=== PATIENT | female | born 1945 | race Caucasian/White ===

== ENCOUNTER → 2018-02-20 09:54 | Outpatient (CLI) | payer MEDICARE, OTHER, SELFPAY ==
--- NOTE | 2018-02-20 | DI.RAD.S_ITS ---
PROCEDURE: XR CHEST 2V INDICATIONS: Chest pain, unspecified TECHNIQUE: 2 views of the chest were acquired. COMPARISON: None. FINDINGS: Surgical changes and devices: None. Lungs and pleura: No pleural effusions or pneumothorax. Lungs are clear. Mediastinum: Mediastinal contours are normal. Heart size is normal. Bones and chest wall: No suspicious bony abnormalities. Soft tissues appear unremarkable. IMPRESSION: No acute disease. Dictated by: Zafar Ho M.D. on 02/20/2018 at 11:12 Approved by: Zafar Ho M.D. on 02/20/2018 at 11:23
== END ==
PROVIDERS: PCP Internal Medicine; Visit Provider Internal Medicine
DX: R07.9 Chest pain, unspecified (principal); M89.9 Disorder of bone, unspecified
CPT/HCPCS: 71046

== ENCOUNTER → 2018-03-08 10:00 | Outpatient (CLI) | payer MEDICARE, OTHER, SELFPAY | PROVIDERS: PCP Internal Medicine; Visit Provider Internal Medicine | DX: M85.852 Other specified disorders of bone density and structure, left thigh (principal); E07.9 Disorder of thyroid, unspecified | CPT/HCPCS: 77080 ==

== ENCOUNTER → 2018-03-12 08:08 | Outpatient (CLI) | payer MEDICARE, OTHER, SELFPAY ==
--- NOTE | 2018-03-12 09:16 | PM.TREADMILL ---
Cardiac Stress Test Report Referral & Results Date Patient Seen: 03/12/18 Time Patient Seen: 09:16 Requesting provider: Rashmi Cardenas Indication: Chest pain Rest ECG: Unremarkable Procedure Note: Today following both written and verbal informed consent the patient was exercised according to a standard Danilo protocol patient went for a total of 7 min 11 sec achieving a maximum heart rate of 146 maximum systolic blood pressure of 180. This is approximately 10.1 METS. Exercise was terminated at this point because of targets having been met. Patient could continue on the treadmill probably a fair amount longer. Patient was also given Cardiolite through a previously started Hep-Lock IV by the lead quality technician approximately 1 minute prior to the cessation of exercise. There were no ST-T segment changes identified Normal heart rate and blood pressure response to exercise Functional aerobic impairment rated at least-30% on the active scale noting the patient could have continued Single PVC in recovery identified Impression: No evidence of ischemia based on ECG criteria. Perfusion imaging will be reported separately. Amazing exercise capacity. Please note: Actual ECG tracings can be found in the PACS system.
--- NOTE | 2018-03-13 15:13 | DI.NM.S_ITS ---
DATE OF SERVICE: 03/12/2018 PROCEDURE: Exercise perfusion study. INDICATIONS: Chest pain with underlying hyperlipidemia. RADIOPHARMACEUTICAL: 25.5 mCi technetium-99 Myoview IV was injected in stress and 24.5 mCi technetium-99m Myoview IV was injected at rest. CARDIAC STRESS: Patient underwent exercise perfusion study under the supervision of an attending staff. She walked on Danilo protocol for 7 minutes 11 seconds and achieved 100% target heart rate with normal blood pressure response. Baseline rhythm was sinus. Stress EKG did not reveal any obvious inducible ischemic changes. There were no significant arrhythmias other than single PVCs. No significant symptoms were reported. Functional aerobic impairment -30%. RAW DATA: There appears to be adequate myocardial uptake. GATED STUDY: Stress LV ejection fraction 78% without any significant wall motion abnormalities. Resting end-diastolic volume 76 mL. No transient ischemic dilatation. TID ratio is 0.85, which is within normal limits. Lung/heart ratio was 0.4, which is within normal limits. MYOCARDIAL PERFUSION: Stress supine and resting supine and stress prone images revealed normal myocardial perfusion. CONCLUSION: This is a normal myocardial perfusion study. Functional aerobic impairment -30%. She walked on Danilo protocol for 7 minutes 11 seconds. LV function preserved. Overall, this is a low-risk myocardial perfusion scan. Lai Cano - LINUX SYSTEMS ADMINISTRATOR/fn/kv doc#: [id number]/job#: [id number] dd: 03/13/2018 12:52:00 dt: 03/13/2018 15:05:00 DICTATING /COPIES TO: Irlanda Reyes MD COPIES MNE: VONDA
== END ==
PROVIDERS: PCP Internal Medicine; Visit Provider Internal Medicine
DX: R07.9 Chest pain, unspecified (principal); E78.5 Hyperlipidemia, unspecified
CPT/HCPCS: 78452; 93016; 93017; 93018; A9502

== ENCOUNTER 2019-02-07 09:48 | Emergency (ER) | payer MEDICARE, OTHER, SELFPAY ==
[2019-02-07 09:50] VITALS: BP 160/98; PULSE 80; RESP 18; TEMP 36.4; O2SAT 99
[2019-02-07 10:00] VITALS: BP 144/78; PULSE 67; RESP 14; O2SAT 97
[2019-02-07 10:12] LABS: Add Manual Diff / Slide Review NO; Basophils Absolute Auto 0 /uL (0-100); Basophils Percent Auto 0.6 % (0-2); Eosinophils Absolute Auto 100 /uL (0-450); Eosinophils Percent Auto 1.2 % (2-4); Hematocrit 45.5 % (36-46); Hemoglobin 15.4 g/dL (12.0-16.0); Lymphocytes Absolute Auto 1300 /uL (1100-4500); Lymphocytes Percent Auto 27.9 % (25-40); Mean Corpuscular HGB Conc 33.8 % (30-36); Mean Corpuscular Hemoglobin 32.4 PG (26-34); Mean Corpuscular Volume 95.7 fL (80-100); Monocytes Absolute Auto 300 /uL (0-900); Monocytes Percent Auto 6.2 % (3-14); Neutrophils Absolute Auto 2900 /uL (1500-7000); Neutrophils Percent Auto 64.1 % (50-75); Platelet Count 209 X10^3/uL (150-400); Red Blood Cell Count 4.75 X10^6/uL (4.0-5.2); Red Cell Distribution Width 13.4 % (11.6-14.8); White Blood Cell Count 4.5 X10^3/uL (4.5-11.0)
[2019-02-07 10:16] LABS: INR 0.9 (0.9-1.3)
--- NOTE | 2019-02-07 10:18 | DI.CT.S_ITS ---
PROCEDURE: CT HEAD/BRAIN WO CON INDICATIONS: facial numbness, vertigo TECHNIQUE: Noncontrast 4.5 mm thick angled axial sections acquired from the foramen magnum to the vertex, with coronal and sagittal reformats. For radiation dose reduction, the following was used: automated exposure control, adjustment of mA and/or kV according to patient size. COMPARISON: None. FINDINGS: Image quality: Excellent. CSF spaces: Basal cisterns are patent. No extra-axial fluid collections. The ventricles are symmetric in size and shape. Brain: No intracranial bleeds or masses. There is cerebral volume loss for age, with resultant ventricular and sulcal prominence. There are periventricular and deep white matter chronic small vessel ischemic changes. There is intracranial internal carotid artery atherosclerosis. Skull and face: Calvarium and visualized facial bones appear intact, without suspicious lesions. Sinuses: Visualized sinuses and mastoids are clear. IMPRESSION: 1. No acute intracranial process. 2. Mild atrophy and chronic microvascular ischemic changes. Dictated by: Elizbaeth Nance M.D. on 02/07/2019 at 10:26 Approved by: Elizabeth Nance M.D. on 02/07/2019 at 10:27
[2019-02-07 10:19] LABS: PTT Partial Thromboplastin Tim 32 SECONDS (26.4-36.2)
[2019-02-07 10:22] LABS: Blood Urea Nitrogen 18 mg/dL (7-17); Calcium 9.5 mg/dL (8.4-10.2); Carbon Dioxide 26 mmol/L (22-32); Chloride 104 mmol/L (98-107); Estimated Glomerular Filt Rate > 60.0 mL/min (>60); Glucose 132 mg/dL (80-110); HEMOLYSIS < 15 (0-50); Potassium 3.8 mmol/L (3.4-5.1); Sodium 140 mmol/L (137-145)
[2019-02-07] MEDS: SODIUM CHLORIDE 0.9% 1,000 ML 150 ML IV (10:45)
[2019-02-07] MEDS: MECLIZINE HCL 12.5 MG TABLET 50 MG PO (10:45)
--- NOTE | 2019-02-07 10:58 | ED_ITS ---
HPI - Neuro Symptoms/Deficit General Chief Complaint: Neuro Symptoms/Deficit Stated Complaint: Dizzy,Left side of face is numb Time Seen by Provider: 02/07/19 10:05 Source: patient and family Mode of arrival: ambulatory Limitations: no limitations History of Present Illness HPI Narrative: This is a 73-year-old female comes emergency department complaint of vertigo like symptoms. Patient states she has had in the past but she has on the left side of her face which is new. Patient denies any tingling anywhere el se. She denies any weakness or numbness elsewhere. She denies any but has had a little nausea. She denies any, no vision changes. No chest pain or shortness of breath. No other GI or urinary symptoms other than described above. Patient takes levothyroxine. She denies any other major medical issues. Patient states she woke up this morning with symptoms. She went to bed without them it is w orse with movement. She was able to ambulate into the department. On Anticoagulants: No Related Data Home Medications Medication Instructions Recorded Confirmed CoQ-10 300 mg PO DAILY 02/07/19 02/07/19 cholecalciferol (vitamin D3) 5,000 unit PO DAILY 02/07/19 02/07/19 [Vitamin D3] levothyroxine 50 mcg PO DAILY 02/07/19 02/07/19 multivitamin 1 tab PO DAILY 02/07/19 02/07/19 Previous Rx's Medication Instructions Recorded meclizine 25 mg PO QID PRN #10 tab 02/07/19 Allergies Allergy/AdvReac Type Severity Reaction Status Date / Time No Known Drug Allergies Allergy Verified 02/07/19 10:24 [facility] Social History Smoking Status: Never smoker Social History Smoking Status: Never smoker Exam Narrative Exam Narrative: GEN: well nourished, well appearing female, alert and oriented x 3, patient appears to be in mild distress. HEENT: Atraumatic, pupils are equal round reactive to light, extraocular movements are intact, nares are clear, TMs are clear with no fluid, there is no conjunctival pallor. Throat is clear without any exudates, erythema, tonsillar enlargement or uvular deviation, no facial droop HEART: Regular rate and rhythm without murmur, clicks, rubs. No carotid bruits, pulses are equal in upper and lower extremities LUNGS:Lungs clear to auscultation, no wheezes, rales, crackles, chest moves symmetrically ABD:bowel sounds normal, soft, non-tender, no guarding, rebound, rigidity, no masses noted, no hepatosplenomegaly :No CVA tenderness MSCL: Non-tender, no muscle atrophy, muscles strength 5/5 upper and lower extremities, full range of motion, normal gait NEURO:CN 2-12 intact, sensation normal, reflexes 2/4 upper and lower extremities. finger nose finger test normal, heel rubio test normal. Initial Vital Signs Initial Vital Signs: Vital Signs Temperature 97.5 F L 02/07/19 09:50 Pulse Rate 80 02/07/19 09:50 Respiratory Rate 18 02/07/19 09:50 Blood Pressure 160/98 H 02/07/19 09:50 Pulse Oximetry 99 02/07/19 09:50 Scores NIH Stroke Scale Level of Conciousness: Alert, keenly responsive Ask month/age: Answers both questions correctly. Open/close eyes, close hand: Performs both tasks correctly Best gaze horizontal: Normal Visual jaimes: No visual loss Facial palsy: Normal symetrical movement Left arm drift: No drift for full 10 sec Right arm drift: No drift for full 10 sec Left leg drift: No drift for full 10 sec Right leg drift: No drift for full 10 sec Limb ataxia: Absent (patient unable to bend left knee 2nd to old knee xray.) Sensory on face/arms/legs: Mild to moderate sensory loss, can tell touch Best language: No aphasia, normal Dysarthria: Normal Extinction or inattention: No abnormality Total NIH Stroke scale score: 1 Course Orders Ordered: ED Orders 02/07/19 10:03 Basic Metabolic Panel Stat Complete Blood Count AUTO DIFF Stat Partial Thromboplastin Time Stat Prothrombin Time INR Stat 02/07/19 10:06 EKG-12 Lead Stat 02/07/19 10:18 CT head/brain wo con Stat Discontinued Medications Sodium Chloride (Normal Saline 0.9%) 1,000 mls @ 150 mls/hr IV CONT MINAL Last Infusion: 02/07/19 12:34 Dose: 0 mls/hr Documented by: Admin: 02/07/19 10:45 Dose: 150 mls/hr Documented by: HERMINIO Meclizine HCl (Antivert) 50 mg PO NOW ONE Stop: 02/07/19 10:13 Last Admin: 02/07/19 10:45 Dose: 50 mg Documented by: HERMINIO Vital Signs Vital signs: Vital Signs - 8 hr 02/07/19 11:00 02/07/19 11:35 02/07/19 11:37 Pulse Rate 63 64 64 Respiratory Rate 16 16 14 Blood Pressure [Right Arm] 142/73 H 152/79 H 152/79 H Pulse Oximetry 97 98 97 02/07/19 12:29 Pulse Rate 68 Respiratory Rate 18 Blood Pressure [Right Arm] 136/76 Pulse Oximetry 98 MDM - Neuro Symptoms/Deficit Lab Data Attestation: I reviewed the patient's lab results. Result diagrams: 02/07/19 10:03 02/07/19 10:03 Labs: Lab Results 02/07/19 02/07/19 02/07/19 Range/Units 10:03 10:03 10:03 WBC 4.5 (4.5-11.0) X10^3/uL RBC 4.75 (4.0-5.2) X10^6/uL Hgb 15.4 (12.0-16.0) g/dL Hct 45.5 (36-46) % MCV 95.7 (80-100) fL MCH 32.4 (26-34) PG MCHC 33.8 (30-36) % RDW 13.4 (11.6-14.8) % Plt Count 209 (150-400) X10^3/uL Neut % (Auto) 64.1 (50-75) % Lymph % (Auto) 27.9 (25-40) % [place] % (Auto) 6.2 (3-14) % Eos % (Auto) 1.2 L (2-4) % Baso % (Auto) 0.6 (0-2) % Neut # (Auto) 2900 (7988-7895) /uL Lymph # (Auto) 1300 (1079-7627) /uL [place] # (Auto) 300 (0-900) /uL Eos # (Auto) 100 (0-450) /uL Baso # (Auto) 0 (0-100) /uL PT 10.0 L (10.1-12.7) SECONDS INR 0.9 (0.9-1.3) APTT 32 (26.4-36.2) SECONDS Sodium 140 (137-145) mmol/L Potassium 3.8 (3.4-5.1) mmol/L Chloride 104 (98-107) mmol/L Carbon Dioxide 26 (22-32) mmol/L BUN 18 H (7-17) mg/dL Creatinine 0.60 (0.52-1.04) mg/dL Estimated GFR > 60.0 (>60) mL/min BUN/Creatinine Ratio 30.0 H (6-22) Glucose 132 H (80-110) mg/dL Calcium 9.5 (8.4-10.2) mg/dL Imaging Data CT scan - head: Radiologist's impression: Lia Cano Jazmín 73 F 1945 [place] [address] CT Scan Report Signed Patient: Lia Cano DMR#: [id number] : 4Acct:[id number] Age/Sex: 73 / FDate of Service: 02/07/19 Loc: ED Accession Number: [id number] Procedure: CT head/brain wo con Ordering Provider: Deidre Wallace D.O. PROCEDURE: CT HEAD/BRAIN WO CON INDICATIONS: facial numbness, vertigo TECHNIQUE: Noncontrast 4.5 mm thick angled axial sections acquired from the foramen magnum to the vertex, with coronal and sagittal reformats. For radiation dose reduction, the following was used: automated exposure control, adjustment of mA and/or kV according to patient size. COMPARISON: None. FINDINGS: Image quality: Excellent. CSF spaces: Basal cisterns are patent. No extra-axial fluid collections. The ventricles are symmetric in size and shape. Brain: No intracranial bleeds or masses. There is cerebral volume loss for age, with resultant ventricular and sulcal prominence. There are periventricular and deep white matter chronic small vessel ischemic changes. There is intracranial internal carotid artery atherosclerosis. Skull and face: Calvarium and visualized facial bones appear intact, without suspicious lesions. Sinuses: Visualized sinuses and mastoids are clear. IMPRESSION: 1. No acute intracranial process. 2. Mild atrophy and chronic microvascular ischemic changes. Dictated by: Elizabeth Nance M.D. on 02/07/2019 at 10:26 Approved by: Elizabeth Nance M.D. on 02/07/2019 at 10:27 ECG Data Attestation: I personally reviewed and interpreted this ECG as follows: Prior ECG tracings: available for review Interpretation: Sinus rhythm with a rate of 67 P are 174 QRS of 94 and QTC of 441. No ST elevation appreciated. Facial depression 2 3 AVF. Patient has incomplete right bundle branch. Prior EKG from 02/16/16 and 2014 available, appears similar. MDM Narrative Medical decision making narrative: Patient is requesting to go home, she states the tingling has gone away. Her vertigo has improved with meclizine. Patient has had vertigo in the past but not the tingling sensation. We discussed at length that I cannot rule out a TIA or stroke although her symptoms have otherwise resolved patient wishes to return home at time she does understand that she could be having a TIA or stroke that we are missing asked to continue an aspirin daily until she follows up with her primary and that she does need workup. We did discuss the keep her for observation and I would be the more appropriate conservative pathway. Patient and are both in the room they are both comfortable with the plan and have both expressed understanding. Discharge Plan Departure Patient Disposition: Home Clinical Impression: Vertigo Discharge Date/Time: 02/07/19 12:40 Instructions: DI for Transient Ischemic Attack Activity Restrictions/Additional Instructions: Follow-up with your primary care physician on Sunday, call this afternoon to set up an appointment. You should have further workup including MRI, echo, Dopplers of your neck and evaluation for TIA or stroke. Take an aspirin daily until you follow up with your physician. You may continue your other home medications. Take meclizine 1-2 tablets every 6-8 hours as needed for vertigo symptoms. Return to the emergency department for new or worsening symptoms, sudden severe headaches, new facial droop, difficulty with speech, new numbness or tingling, new weakness difficulty with movement or other new or concerning symptoms. Prescriptions: New meclizine 25 mg tablet,chewable 25 mg PO QID PRN (Reason: dizziness) Qty: 10 RF: 0 No Action multivitamin Tablet 1 tab PO DAILY RF: 0 levothyroxine 50 mcg Tablet 50 mcg PO DAILY RF: 0 cholecalciferol (vitamin D3) [Vitamin D3] 5,000 unit Tablet 5,000 unit PO DAILY RF: 0 CoQ-10 300 MG 300 mg PO DAILY RF: 0 Referrals: Rashmi Cardenas MD [Primary Care Provider] -
[2019-02-07 11:00] VITALS: BP 142/73; PULSE 63; RESP 16; O2SAT 97
[2019-02-07 11:35] VITALS: BP 152/79; PULSE 64; RESP 16; O2SAT 98
[2019-02-07 11:37] VITALS: BP 152/79; PULSE 64; RESP 14; O2SAT 97
[2019-02-07 12:29] VITALS: BP 136/76; PULSE 68; RESP 18; O2SAT 98
== END 2019-02-07 12:40 | disposition home or self-care (01) ==
PROVIDERS: Emergency Provider Emergency Medicine; PCP Internal Medicine
DX: R42 Dizziness and giddiness (principal); R20.0 Anesthesia of skin
CPT/HCPCS: 36591; 70450; 80048; 85025; 85610; 85730; 93005; 93010; 96360; 96361; 99283; 99285

== ENCOUNTER → 2019-02-28 07:41 | Outpatient (CLI) | payer MEDICARE, OTHER, SELFPAY ==
--- NOTE | 2019-02-28 | DI.MRI.S_ITS ---
PROCEDURE: MR STROKE Pre- and post-contrast brain MRI, non-contrast brain MR angiogram, pre- and postcontrast neck MR angiogram INDICATIONS: TRANSIENT CEREBRAL ISCHEMIC ATTACH,UNSPECIFIED TECHNIQUE: Brain: Noncontrast axial T1 spin echo, axial T2 fast spin echo, sagittal and axial FLAIR, coronal T2 fast spin echo, axial gradient echo, axial diffusion and ADC through the brain. After the administration of contrast, axial 3D VIBE of the cranial vasculature and brain. Brain MRA: Non-contrast 3-D time of flight MR angiogram, with multiple gzatgvx-gpuarovpa-whvhytfhcq (MIP) reformats performed. Neck MRA: Axial and sagittal TruFISP through the neck. Coronal dynamic MR angiogram during administration of contrast in the arterial and venous phases, with 3-dimenstional tmcysdl-nfjypkmxy-rpwghkqfgq (MIP) reformats constructed from subtraction images. COMPARISON: None. FINDINGS: Image quality: Excellent. BRAIN: CSF spaces: Ventricles are normal in size and shape. Basal cisterns are patent. No extra-axial fluid collections. Brain: No intracranial bleeds or mass effects. Fox-white matter interface is normal. Diffusion weighted images show no acute ischemic insults. No areas of encephalomalacia. There is mild, diffuse cerebral volume loss. There are mild periventricular and subcortical white matter chronic microvascular ischemic changes. Brainstem appears normal. Normal intravascular flow voids are present. No abnormal intracranial enhancement. Skull and face: Calvarial marrow signal is normal. Orbits appear normal. Sinuses: Sinuses and mastoids are clear. BRAIN MR ANGIOGRAM: Anterior circulation: Intracranial internal carotid arteries are normal in size and enhancement. The flow within the paired anterior cerebral arteries is normal and symmetric. The flow within the middle cerebral arteries is normal and symmetric. The anterior communicating artery is seen. No stenoses, occlusions, or aneurysms. Posterior circulation: The visualized portions of the vertebral arteries demonstrate normal caliber, and join to form a normal appearing basilar artery. The flow within the posterior cerebral arteries is normal and symmetric. No stenoses, occlusions, or aneurysms. NECK MR ANGIOGRAM: Carotids: Great vessels demonstrate a conventional anatomy as they arise from the aortic arch. The origins of the common carotid arteries appear patent. The calibers and courses of both common carotid arteries are normal. The bifurcation regions appear normal bilaterally. The internal carotid arteries demonstrate normal course and caliber. Posterior circulation: The origins of the vertebral arteries appear patent. More superior portions of both vertebral arteries demonstrate normal course and caliber, and join to form a normal appearing basilar artery. Miscellaneous: Subclavian arteries appear patent. Pre-contrast images through the neck show no soft tissue abnormalities. IMPRESSION: BRAIN MRI: 1. No acute intracranial disease process. 2. No areas of acute or chronic infarction. 3. No abnormal intracranial mass or suspicious postcontrast enhancement. 4. Mild, diffuse cerebral volume loss. 5. Mild periventricular and subcortical white matter chronic microvascular ischemic changes. BRAIN MR ANGIOGRAM: 1. Negative examination. 2. No large vessel occlusion, vascular stenosis, vascular dissection or aneurysm. NECK MR ANGIOGRAM: 1. Negative examination. 2. No large vessel occlusion, vascular stenosis, vascular dissection or aneurysm. Dictated by: Angeles Meehan MD, PhD on 02/28/2019 at 12:13 Approved by: Angeles Meehan MD, PhD on 02/28/2019 at 12:18
--- NOTE | 2019-02-28 | DI.ECHO.S_ITS ---
[place] [facility]---------+ [facility] +---------+ : : [address] : : : : [id number] : : : : Phone: [phone] Echocardiogram Report + + :Name: SIERRA BURGOS Study Date: 02/28/2019 Height: 61 in : :[facility] Weight: 144 lb : : Gender: Female BSA: 1.6 m2 : :: 1945 Age: 73 yrs BP: 160/90 mmHg: :Reason For Study: TIA : :Ordering Physician: Victorina Reis : :Fercho Performed By: Dayana Page : :Referring: MACARENA BROUSSARD : + + Interpretation Summary The left ventricle is normal in size, wall thickness, and systolic function without any focal wall motion abnormalities. The ejection fraction is estimated to be 60-65%. Diastolic parameters suggest a relaxation abnormality of the left ventricle, consistent with probable normal filling pressures. The right ventricle is normal in size and function. The right ventricular systolic pressure is estimated to be at least 20 mmHg based on an estimated right atrial pressure of 3 mm Hg. The left atrium is mildly dilated. Right atrial size is normal. There is mild mitral regurgitation. There is no significant valvular heart disease. The aortic root is normal size. No obvious source for cardioembolic TIA. Procedure: A two-dimensional transthoracic echocardiogram with color flow and Doppler was performed. The study quality was technically adequate. There is no prior echocardiogram noted for this patient. The patient was in normal sinus rhythm during the exam. Left Ventricle: The left ventricle is normal in size, wall thickness, and systolic function without any focal wall motion abnormalities. The ejection fraction is estimated to be 60-65%. Diastolic parameters suggest a relaxation abnormality of the left ventricle, consistent with probable normal filling pressures. Right Ventricle: The right ventricle is normal in size and function. Atria: The left atrium is mildly dilated. Right atrial size is normal. There is no Doppler evidence for an interatrial shunt. Mitral Valve: The mitral valve leaflets are mildly calcified. There is mild mitral regurgitation. Aortic Valve: The aortic valve is trileaflet. The aortic valve opens well. The aortic valve is slightly calcified. No aortic regurgitation is present. Tricuspid Valve: The tricuspid valve is normal in structure and function. There is a trace or physiologic amount of tricuspid regurgitation. The right ventricular systolic pressure is estimated to be at least 20 mmHg based on an estimated right atrial pressure of 3 mm Hg. Pulmonic Valve: The pulmonic valve is not well visualized. There is trace pulmonic regurgitation. There is no significant valvular heart disease. Great Vessels: The aortic root is normal size. The ascending aorta is normal in size. The pulmonary artery is not well visualized, but is probably normal size. The IVC is of normal diameter and collapses greater than 50% with a sniff. This suggests a low right atrial pressure of 3 mm Hg. Pericardium/ Pleura There is no pericardial effusion. There is no pleural effusion. MMode/2D Measurements & Calculations LVIDd: 4.5 cm LVOT diam: 2.1 cm LVIDs: 3.3 cm Ao root diam: 3.1 cm FS: 27.7 % asc Aorta Diam: 2.9 cm EPSS: 0.14 cm Ao Arch Diam (Prox Trans): 2.4 cm IVSd: 0.75 cm LVPWd: 0.65 cm LV hong. diameter/BSA (cm/m^2): 2.7 LV sys. diameter/BSA (cm/m^2): 2.0 LA A2 area: 19.2 cm2 RA long axis: 4.8 cm LA A4 area: 22.2 cm2 RA area: 15.6 cm2 LA length (vol): 5.4 cm RA vol: 43.2 ml LA vol: 67.0 ml RA : 26.3 ml/m2 LA vol index: 40.8 ml/m2 IVC diam: 1.7 cm RVD1 (basal): 3.8 cm RVD2 (mid): 2.9 cm TAPSE: 2.7 cm Doppler Measurements & Calculations Ao V2 max: 170.6 cm/sec LVOT Max Lamont: 95.8 cm/sec Ao V2 mean: 118.6 cm/sec LV V1 max P.7 mmHg Ao max P.6 mmHg LV V1 VTI: 22.1 cm Ao mean P.2 mmHg GOLDEN(I,D): 2.1 cm2 Ao V2 VTI: 36.2 cm GOLDEN(V,D): 2.0 cm2 sev ratio: 0.61 GOLDEN indexed to BSA (cm^2/m^2): 1.3 MV E max lamont: 90.2 cm/sec TR max lamont: 207.3 cm/sec MV A max lamont: 103.8 cm/sec TR max P.2 mmHg MV E/A: 0.87 PA V2 max: 71.6 cm/sec Med Peak E' Lamont: 6.8 cm/sec PA V2 mean: 53.4 cm/sec E/E' med: 13.2 PA mean P.2 mmHg Lat Peak E' Lamont: 9.7 cm/sec PA Accel Time: 0.13 sec E/E' lat: 9.3 E/e' average: 11.3 MV dec time: 0.21 sec MV P1/2t: 59.1 msec MV P1/2t max lamont: 90.8 cm/sec SV(LVOT): 77.7 ml MVA(P1/2t): 3.7 cm2 Reading Physician:12:46 PM
--- NOTE | 2019-02-28 | DI.US.S_ITS ---
PROCEDURE: US CAROTID DOPPLER BI INDICATIONS: TRANSIENT CEREBRAL ISCHEMIC ATTACH,UNSPECIFIED TECHNIQUE: Color and pulse Doppler interrogation was performed of both carotid systems, with image documentation and velocity measurements. COMPARISON: [facility], CT, CT HEAD/BRAIN WO CON, 02/07/2019, 10:07. FINDINGS: Stenosis calculations are based on SRU (Society of Radiologists in Ultrasound) criteria. The flow velocities and the arterial waveforms are normal within both carotid arterial systems. Atherosclerotic plaque is seen on both sides. The estimated degree of internal carotid artery stenosis is less than 50%. The internal carotid arteries are both noted to be tortuous. Antegrade flow is confirmed within both vertebral arteries. IMPRESSION: No hemodynamically significant stenosis is seen. Atherosclerotic plaque is noted bilaterally. Dictated by: Jesus Manuel Lilly M.D. on 02/28/2019 at 8:59 Approved by: Jesus Manuel Lilly M.D. on 02/28/2019 at 9:00
== END ==
PROVIDERS: Family Provider Internal Medicine; PCP Internal Medicine; Visit Provider Physician Assistant
DX: G45.9 Transient cerebral ischemic attack, unspecified (principal); I34.0 Nonrheumatic mitral (valve) insufficiency; I10 Essential (primary) hypertension; E78.2 Mixed hyperlipidemia; R42 Dizziness and giddiness; R20.0 Anesthesia of skin
CPT/HCPCS: 70548; 70553; 93306; 93880; A9579

== ENCOUNTER → 2019-05-26 10:04 | Outpatient (CLI) | payer MEDICARE, OTHER, SELFPAY ==
[2019-05-26 11:43] LABS: Alanine Aminotransferase 26 IU/L (<35); Aspartate Aminotransferase 35 IU/L (14-36); BUN Creatinine Ratio 18.8 (6-22); Blood Urea Nitrogen 15 mg/dL (7-17); Calcium 9.8 mg/dL (8.4-10.2); Carbon Dioxide 31 mmol/L (22-32); Chloride 103 mmol/L (98-107); Cholesterol 232 mg/dL (140-199); Estimated Glomerular Filt Rate > 60.0 mL/min (>60); Glucose 98 mg/dL (80-110); HDL Cholesterol 95 mg/dL (40-60); HEMOLYSIS < 15 (0-50); LDL Cholesterol Calculated 113 mg/dL (<100); Potassium 5.1 mmol/L (3.4-5.1); Sodium 141 mmol/L (137-145); Triglycerides 120 mg/dL (35-150)
[2019-05-26 13:47] LABS: TSH w/ Reflex to FT4 4.56 uIU/mL (0.47-4.68)
== END ==
PROVIDERS: PCP Internal Medicine; Visit Provider Internal Medicine
DX: M85.80 Other specified disorders of bone density and structure, unspecified site (principal); E78.5 Hyperlipidemia, unspecified; E03.9 Hypothyroidism, unspecified
CPT/HCPCS: 36415; 80048; 80061; 84443; 84450; 84460

== ENCOUNTER → 2019-07-03 14:20 | Outpatient (CLI) | payer OTHER, SELFPAY ==
--- NOTE | 2019-07-03 | DI.NM.S_ITS ---
PROCEDURE: [place] KIM PERF SPECT REST & STR Rest and exercise myocardial perfusion SPECT with gated imaging and ejection fraction RADIOPHARMACEUTICAL: 24.1 mCi Tc-99m sestamibi IV at rest and 26.4 mCi Tc-99m sestamibi IV at peak exercise. A [id number] was performed. INDICATIONS: Chest pain, unspecified TECHNIQUE: Radiopharmaceutical was injected at peak stress test, and also at rest. SPECT images were obtained. SPECT myocardial perfusion images were displayed in short axis, horizontal long axis, and vertical long axis views. Gated images were reviewed using [employer] software. COMPARISON: [facility], [place], [place] KIM PERF SPECT REST & STR, 03/12/2018, 8:51. CARDIAC STRESS: A standard Danilo treadmill exercise tolerance test was performed by the patient under the supervision of an attending staff. The patient exercised for 7 minutes and 21 seconds; functional aerobic impairment (STORMY) is -19 %. Hemodynamic data: There is normal blood pressure and heart rate response to exercise stress. Patient achieved 106% of maximum predicted heart rate at peak exercise. Symptoms: Patient denied chest pain during exercise. Retrosternal chest burning at rest and exercise with no change with activity. EKG: Baseline ECG is normal. No diagnostic EKG changes of ischemia; no ectopy. FINDINGS: Raw data: There is good myocardial labeling by radiotracer. No significant motion artifacts. Rrdl-zz-ngqbk ratio is 0.42 (normal is less than 0.38 for sestamibi tracer, and less than 0.50 for thallium tracer). Left ventricle function: Gated images demonstrate normal left ventricle wall thickening. No segmental wall motion abnormality. No transient ischemic dilation; TID is 0.88 (normal less than 1.3). The left ventricle resting end-diastolic volume is 84 mL. Left ventricle stress ejection fraction is >75%; normal values are above 45%. Myocardial perfusion: There is normal distribution of activity in the left and right ventricular myocardium. No fixed or reversible perfusion defects. IMPRESSION: -Normal myocardial perfusion study with no evidence of ischemia or scar. -No changes compared to the prior study. -Great exercise capacity. -Overall this is a low risk study. Dictated by: Colton Jacob M.D. on 07/04/2019 at 17:24 Approved by: Colton Jacob M.D. on 07/04/2019 at 17:30
== END ==
PROVIDERS: PCP Internal Medicine; Referring Provider Internal Medicine; Visit Provider Internal Medicine
DX: R07.9 Chest pain, unspecified (principal)
CPT/HCPCS: 78452; 93017; A9502

== ENCOUNTER 2019-07-09 08:57 | Day surgery (SDC) | payer OTHER, SELFPAY ==
--- NOTE | 2019-07-09 | PATH_ITS ---
[facility] Accession Number: [id number] . 01 Material submitted: . PART A: colon - DESCENDING COLON POLYP PART B: rectum - RECTAL PROLAPSE BIOPSY . 01 Clinical history: . B: RULE OUT DYSPLASIA . 02 Diagnosis: A. Descending Colon, Polyp, Biopsy: Inflammatory polyp. Negative for dysplasia and malignancy. . B. Rectum, Prolapse, Biopsy: Colonic mucosa with features consistent with mucosal prolapse. Negative for dysplasia and malignancy. [facility] 07/10/2019 1213 Local . 02 Electronically signed: . Harini Beltran MD, Pathologist NPI- [id number] . 01 Gross description: . Part A: DESCENDING COLON POLYP: Received in formalin is 1 fragment(s) of guzman, soft tissue measuring 0.2 x 0.2 x 0.1 cm submitted entirely in 1 cassette(s) Part B: RECTAL PROLAPSE BIOPSY: Received in formalin are 2 fragment(s) of guzman, soft tissue measuring 0.1 x 0.1 x 0.1 cm to 0.3 x 0.2 x 0.2 cm submitted entirely in 1 cassette(s) /[facility] [place] 07/09/2019 2131 Local . 02 Pathologist provided ICD-10: K62.3 . 02 CPT . 365558, [id number] Performed at: 01 [facility] [address], [place], [place] [id number] MD Ahmet Michelle MD Phone: [phone] Performed at: 02 [facility] [address] [place], [place] [id number] MD Harini Beltran MD Phone: [phone]
--- NOTE | 2019-07-09 08:07 | PM.HP.1 ---
History of Present Illness History of Present Illness Date Patient Seen: 07/09/19 Chief complaint: [id number] SCREENING COLONOSCOPY Narrative: Patient is a 73 year old female - presented for screening colonoscopy. No prior colonoscopy. Patient History Family & Social History Tobacco & Substance use: Smoking Status Never smoker alcohol intake frequency 0-2 drinks per day Substance Use Type does not use Meds Home Medications and Allergies Home Medications Medication Instructions Recorded Confirmed Type CoQ-10 300 mg PO DAILY 02/07/19 07/09/19 History cholecalciferol (vitamin D3) 5,000 unit PO DAILY 02/07/19 07/09/19 History [Vitamin D3] levothyroxine 50 mcg PO DAILY 02/07/19 07/09/19 History multivitamin 1 tab PO DAILY 02/07/19 07/09/19 History Allergies Allergy/AdvReac Type Severity Reaction Status Date / Time No Known Drug Allergies Allergy Verified 07/09/19 09:14 Review of Systems Review of Systems ROS: Yes All systems reviewed with the patient and are negative except as otherwise documented Exam Const General: cooperative, healthy appearing, comfortable, well developed, well groomed and No acute distress HENMT Head: normocephalic and atraumatic Nose: external nose normal Resp Effort & Inspection: normal respiratory effort and able to speak in complete sentences Auscultation: clear to auscultation bilaterally Cardio Rate: regular rate Rhythm: regular rhythm Heart Sounds: S1 normal and S2 normal GI Palpation: soft, No guarding and No rigid Auscultation: normal bowel sounds Extrem Right lower extremity: no edema Left lower extremity: no edema Assessment & Plan Assessment & Plan narrative: 1. Screening Colonoscopy - Colonoscopy today, further recommendations to follow.
[2019-07-09] MEDS: SODIUM CHLORIDE 0.9% 1,000 ML 70 ML IV (09:16)
[2019-07-09 09:18] VITALS: BP 154/90; PULSE 89; RESP 15; TEMP 36.6; O2SAT 98; BMI 26.4
[2019-07-09 10:23] VITALS: BP 123/71; PULSE 76; RESP 20; TEMP 36.2; O2SAT 98
[2019-07-09] MEDS: MIDAZOLAM 5 MG/5 ML VIAL IV (10:24)
[2019-07-09] MEDS: fentaNYL 250 MCG/5 ML INJ IV (10:25)
--- NOTE | 2019-07-09 10:26 | PM.OP.ENDO ---
Operative Date/Time/Diagnoses Date of procedure: 07/09/19 Time of procedure: 09:59 Procedure Notes Procedure in detail: Surgeon: Amirah Lazo DO Procedure: Colonoscopy with polypectomy and biopsy Preoperative diagnosis: -screening colonoscopy, average risk Postoperative diagnosis: 1. Descending colon polyp 5 mm, polypectomy 2. Diverticulosis, sigmoid colon 3. Rectal prolapse -biopsy to rule out dysplasia Medications: Conscious sedation using 4 mg IV of Midazolam and 100 mcg IV of Fentanyl Preanesthesia Assessment An H and P was performed/updated and the Px?s ASA class is 2. The procedure was discussed in detail with the patient. The potential risks and complications including infection, bleeding, missed lesions, perforation, need for surgery in case of perforation, prolonged hospital stay, and were explained. A brief question and answer period was allotted and once all questions were answered, informed consent was obtained. The patient was brought back to the procedure room and placed on standard monitoring. The patient?s vital signs were monitored continuously throughout the entire procedure. Prior to starting, a timeout was performed to confirm the patient?s identity, allergies, medications, and procedure. Procedure in detail The patient was placed in left lateral decubitus position and once adequate sedation was obtained a MARY was performed. The digital rectal examination revealed evidence of rectal prolapse, this was reducible. Due to discoloration of this tissue was biopsied to rule out dysplasia however I do suspect this is granulation tissue from chronic intermittent prolapse. The tip of the colonoscope was placed in the anal canal and advanced without difficulty all the way to the cecum which was identified by the appendiceal orifice and the ileocecal valve. Careful examination of all kingsley of the colon was performed with irrigation of any residual stool. 5 mm polyp noted in the descending colon removed with cold snare. Bleeding was minimal. Scattered sigmoid diverticulosis. The patient tolerated the procedure well and will be brought back to the recovery area to be discharged once criteria are met. The prep was judged to be good/excellent and adequate to identify polyps less than 5 mm. The withdrawal time was 11min. The total physician intraservice time was 19min. Complications There were no complications and estimated blood loss was minimal. Recommendations: Resume previous diet Continue outPx medications Follow up pathology results Repeat colonoscopy based on pathology results An emergency contact number was given to the patient for any complications related to the procedure
[2019-07-09 10:28] VITALS: BP 103/68; PULSE 80; RESP 18; O2SAT 99
== END 2019-07-09 10:51 | disposition home or self-care (01) ==
PROVIDERS: PCP Internal Medicine; Referring Provider Internal Medicine; Visit Provider Student in an Organized Health Care Education/Training Program
PROC: 0DJD8ZZ Inspection of Lower Intestinal Tract, Via Natural or Artificial Opening Endoscopic (ICD-10-PCS; CPT 45378; principal; 2019-07-09 10:30)
DX: Z12.11 Encounter for screening for malignant neoplasm of colon (principal); K57.30 Diverticulosis of large intestine without perforation or abscess without bleeding; K62.3 Rectal prolapse; K51.40 Inflammatory polyps of colon without complications
CPT/HCPCS: 45385; J2250; J3010

== ENCOUNTER 2020-11-29 03:59 | Emergency (ER) | payer OTHER, SELFPAY ==
[2020-11-29 04:19] VITALS: BP 166/79; PULSE 71; RESP 15; TEMP 36.2; O2SAT 96; BMI 27.3
[2020-11-29 04:52] LABS: Add Manual Diff / Slide Review NO; Basophils Absolute Auto 0 /uL (0-100); Basophils Percent Auto 0.3 % (0-2); Eosinophils Absolute Auto 0 /uL (0-450); Eosinophils Percent Auto 0.4 % (2-4); Hematocrit 42.2 % (36-46); Hemoglobin 14.1 g/dL (12.0-16.0); Lymphocytes Absolute Auto 1100 /uL (1100-4500); Lymphocytes Percent Auto 11.1 % (25-40); Mean Corpuscular HGB Conc 33.4 % (30-36); Mean Corpuscular Hemoglobin 31.7 PG (26-34); Mean Corpuscular Volume 94.9 fL (80-100); Monocytes Absolute Auto 500 /uL (0-900); Monocytes Percent Auto 5.3 % (3-14); Neutrophils Absolute Auto 8400 /uL (1500-7000); Neutrophils Percent Auto 82.9 % (50-75); Platelet Count 231 X10^3/uL (150-400); Red Blood Cell Count 4.45 X10^6/uL (4.0-5.2); Red Cell Distribution Width 13.8 % (11.6-14.8); White Blood Cell Count 10.2 X10^3/uL (4.5-11.0)
[2020-11-29 04:57] LABS: Alanine Aminotransferase 26 IU/L (<35); Albumin 4.5 g/dL (3.5-5.0); Albumin Globulin Ratio 1.5 (1.0-2.8); Alkaline Phosphatase 82 U/L (38-126); Aspartate Aminotransferase 45 IU/L (14-36); BUN Creatinine Ratio 28.9 (6-22); Bilirubin Total 0.5 mg/dL (0.2-1.3); Blood Urea Nitrogen 24 mg/dL (7-17); Calcium 9.3 mg/dL (8.4-10.2); Carbon Dioxide 25 mmol/L (22-32); Chloride 104 mmol/L (98-107); Estimated Glomerular Filt Rate > 60.0 mL/min (>60); Glucose 165 mg/dL (80-110); HEMOLYSIS < 15 (0-50); Lipase 365 U/L (23-300); Potassium 3.9 mmol/L (3.4-5.1); Sodium 138 mmol/L (137-145); Total Protein 7.5 g/dL (6.3-8.2)
[2020-11-29] MEDS: SODIUM CHLORIDE 0.9% 1,000 ML 1000 ML IV (05:11)
--- NOTE | 2020-11-29 05:11 | DI.CT.S_ITS ---
PROCEDURE: CT ABDOMEN PELVIS WO CON INDICATIONS: severe abdominal pain TECHNIQUE: Axial sections were acquired from the lung bases to the pubic symphysis. Coronal and sagittal reformats were performed. For radiation dose reduction, the following was used: automated exposure control, adjustment of mA and/or kV according to patient size. COMPARISON:None. FINDINGS: Image quality: Excellent. Lung bases: Unremarkable. Heart: No significant findings. URINARY: Right Kidney: Hydronephrosis, moderate in severity, with perinephric edema. Right Ureter: Hydroureter, to the mid pelvis level where a impacted 5 x 6 mm stone can be seen within the ureteral lumen, with hydroureter virtually terminating at that site. The internal stone density is 1031 Hounsfield units. Left Kidney: No stones or hydronephrosis. Left Ureter: No hydroureter. Bladder: Normal wall thickness. No stones. ABDOMEN: Liver: Unremarkable. Gallbladder: Unremarkable. Biliary ducts: Unremarkable. Pancreas: Unremarkable. Spleen: Unremarkable. Adrenal Glands: Unremarkable. Stomach and Bowel: Stomach, small bowel loops, and colon are unremarkable. Peritoneum: No abnormal intraperitoneal fluid. No free air. Ventral Wall: No hernia. Abdominal Nodes: No enlarged retroperitoneal or mesenteric lymph nodes. Vessels: Aorta and inferior vena cava are normal in size. PELVIS: Pelvic Organs: Unremarkable. Normal appendix found. Pelvic Nodes: Unremarkable. Miscellaneous: No inguinal hernias are seen. Bones: Unremarkable. IMPRESSION: Impacted 6 mm calculus at the distal 3rd of the ureter, above the bladder level, on the right. This produces moderate hydronephrosis and hydroureter with perinephric edema on the right. Normal appendix found. Note: These findings are concordant with the preliminary interpretation. Dictated by: Michele Monae M.D. on 11/29/2020 at 7:28 Approved by: Michele Monae M.D. on 11/29/2020 at 7:36
--- NOTE | 2020-11-29 05:11 | ED_ITS ---
HPI - Abdominal Pain General Chief Complaint: Abdominal Pain Stated Complaint: Tremendous pain in right side and back Time Seen by Provider: 11/29/20 04:12 Source: patient Mode of arrival: Ambulatory History of Present Illness HPI narrative: 75-year-old female nonsmoker with history of hypothyroid presents with a chief complaint of sudden onset right lower quadrant pain that started at about 11:00 p.m. tonight. She states it is worse when she moves and improves with rest. She admits to radiation up around her side to her right flank. She is nauseated but denies any vomiting. She denies any fever, shaking chills. She has no chest pain or shortness of breath. She is not dizzy nor weak or lightheaded. Related Data Home Medications Medication Instructions Recorded Confirmed CoQ-10 300 mg PO DAILY 02/07/19 07/09/19 cholecalciferol (vitamin D3) 125 5,000 unit PO DAILY 02/07/19 07/09/19 mcg (5,000 unit) tablet (Vitamin D3) levothyroxine 50 mcg tablet 50 mcg PO DAILY 02/07/19 07/09/19 multivitamin 1 tab PO DAILY 02/07/19 07/09/19 Previous Rx's Medication Instructions Recorded hydrocodone 5 mg-acetaminophen 325 1 tab PO Q4-6H PRN #10 tab 11/29/20 mg tablet ketorolac 10 mg tablet 10 mg PO Q6H PRN #14 tab 11/29/20 ondansetron 4 mg disintegrating 4 mg PO TID-QID PRN #10 tab 11/29/20 tablet tamsulosin 0.4 mg capsule (Flomax) 0.4 mg PO DAILY #30 cap 11/29/20 Allergies Allergy/AdvReac Type Severity Reaction Status Date / Time No Known Drug Allergies Allergy Verified 07/09/19 09:14 Review of Systems Review of Systems Narrative: GENERAL: Denies chills, fatigue, malaise, fever, sweats. HEENT: Denies sinus pain, ear pain, sore throat, difficulty swallowing, dizzine ss. RESPIRATORY: Denies dyspnea, cough, wheezing, hemoptysis, sputum. CARDIOVASCULAR: Denies chest pain, palpitations, orthopnea, edema, GASTROINTESTINAL: See HPI : Denies dysuria, frequency, incontinence, hematuria, urinary retention. MUSCULOSKELETAL: denies weakness, joint pain, or bony pain SKIN: Denies rash, skin lesions, or other NEUROLOGIC: Denies weakness, headache, numbness, change in speech, confusion, seizures, incoordination. PSYCHIATRIC: No concerning psychosocial issues. 12 point review of systems is negative except for those stated above Patient History Social History household members: spouse Smoking Status: Never smoker Smoking Status: Never smoker alcohol intake frequency: 0-2 drinks per day Substance Use Type: does not use Exam Narrative Exam Narrative: GENERAL: [75] year old patient appears stated age. Well- developed patient, in mild distress. Rubbing her lower abdomen HEAD: Atraumatic. Normocephalic. EYES: Pupils equal round and reactive. Extraocular motions intact. No scleral icterus. No injection or drainage. ENT: Nose without bleeding, purulent drainage. Throat without erythema, tonsillar hypertrophy or exudate. Airway patent. NECK: Trachea midline. Non tender CARDIOVASCULAR: Regular rate and rhythm without murmurs, gallops, or rubs. RESPIRATORY: Clear to auscultation. Breath sounds equal bilaterally. No wheezes, rales, or rhonchi. GASTROINTESTINAL: Abdomen soft, tender in the right lower quadrant without guarding or rebound, nondistended. EXTREMITIES: No edema or joint tenderness. BACK: Nontender without deformity or crepitance. No flank tenderness. NEURO: AOx3. SKIN: No rash or erythema of visible areas Initial Vital Signs Initial Vital Signs: Vital Signs Temperature 97.1 F L 11/29/20 04:19 Pulse Rate 71 11/29/20 04:19 Respiratory Rate 15 11/29/20 04:19 Blood Pressure 166/79 H 11/29/20 04:19 Pulse Oximetry 96 11/29/20 04:19 Course Orders Ordered: Discontinued Medications Hydrocodone Bitart/Acetaminophen (Hydrocodone/Acet 5/325 Prepack) 1 bottle MISC SEEINSTR ONE Stop: 11/29/20 07:31 Last Admin: 11/29/20 07:48 Dose: 1 bottle Documented by: TYLER Hydromorphone HCl (Hydromorphone 0.5 Mg Inj) 0.5 mg IV NOW ONE Stop: 11/29/20 06:17 Last Admin: 11/29/20 06:19 Dose: 0.5 mg Documented by: PEE Sodium Chloride (Normal Saline 0.9%) 1,000 mls @ 1,000 mls/hr IV BOLUS ONE Stop: 11/29/20 05:27 Last Admin: 11/29/20 05:11 Dose: 1,000 mls/hr Documented by: PEE Ketorolac Tromethamine (Ketorolac 30 Mg/Ml Vial) 15 mg IV NOW ONE Stop: 11/29/20 05:17 Last Admin: 11/29/20 05:57 Dose: 15 mg Documented by: PEE Ondansetron HCl (Ondansetron 4 Mg/2 Ml Inj) 4 mg IV NOW ONE Stop: 11/29/20 04:29 Last Admin: 11/29/20 05:12 Dose: 4 mg Documented by: PEE Vital Signs Vital signs: Vital Signs - 8 hr 11/29/20 04:19 Temperature 97.1 F L Pulse Rate 71 Respiratory Rate 15 Blood Pressure 166/79 H Pulse Oximetry 96 MDM - Abdominal Pain Lab Data Result diagrams: 11/29/20 04:40 11/29/20 04:40 Labs: Lab Results 11/29/20 11/29/20 Range/Units 04:40 04:40 WBC 10.2 (4.5-11.0) X10^3/uL RBC 4.45 (4.0-5.2) X10^6/uL Hgb 14.1 (12.0-16.0) g/dL Hct 42.2 (36-46) % MCV 94.9 (80-100) fL MCH 31.7 (26-34) PG MCHC 33.4 (30-36) % RDW 13.8 (11.6-14.8) % Plt Count 231 (150-400) X10^3/uL Neut % (Auto) 82.9 H (50-75) % Lymph % (Auto) 11.1 L (25-40) % Sumner % (Auto) 5.3 (3-14) % Eos % (Auto) 0.4 L (2-4) % Baso % (Auto) 0.3 (0-2) % Neut # (Auto) 8400 H (0461-0190) /uL Lymph # (Auto) 1100 (8519-5685) /uL Sumner # (Auto) 500 (0-900) /uL Eos # (Auto) 0 (0-450) /uL Baso # (Auto) 0 (0-100) /uL Sodium 138 (137-145) mmol/L Potassium 3.9 (3.4-5.1) mmol/L Chloride 104 (98-107) mmol/L Carbon Dioxide 25 (22-32) mmol/L BUN 24 H (7-17) mg/dL Creatinine 0.83 (0.52-1.04) mg/dL Estimated GFR > 60.0 (>60) mL/min BUN/Creatinine Ratio 28.9 H (6-22) Glucose 165 H (80-110) mg/dL Calcium 9.3 (8.4-10.2) mg/dL Total Bilirubin 0.5 (0.2-1.3) mg/dL AST 45 H (14-36) IU/L ALT 26 (<35) IU/L Alkaline Phosphatase 82 (38-126) U/L Total Protein 7.5 (6.3-8.2) g/dL Albumin 4.5 (3.5-5.0) g/dL Globulin 3.0 (1.7-4.1) g/dL Albumin/Globulin Ratio 1.5 (1.0-2.8) Lipase 365 H (23-300) U/L Point of care testing: Urine Dip Bedside Urine Glucose Negative Bedside Urine Bilirubin - Negative Bedside Urine Ketone - Negative Urine Specific [place] 1.025 Bedside Urine Occult Blood +++ Bedside Urine pH 6 Bedside Urine Protein - Negative Bedside Urine Urobilinogen - Negative Bedside Urine Nitrite - Negative Bedside Urine Leukocytes - Negative Esterase Imaging Data CT scan - abdomen/pelvis: Radiologist's Impression: 6.8 mm right ureteral stone with moderate right hydroureteronephrosis MDM Narrative Medical decision making narrative: Patient with flank pain and a large impacted stone in the absence of signs of infection or renal failure. Her pain is well tolerated she is tolerating orals. Without extensive discussion regarding return precautions and the patient and both understand and agree with the plan and have had their questions answered to their apparent satisfaction Discharge Plan Departure Patient Disposition: Home Clinical Impression: Calculus of kidney Instructions: DI for Kidney Stones Activity Restrictions/Additional Instructions: *You have been diagnosed with [right-sided kidney stone with associated ureter and kidney swelling] *What to do: *Please continue to take your regular medications as directed. [x ] New medication prescriptions sent to your pharmacy: [ [facility]] [ ] New medication written as a paper prescription [ ] No new medications given *Please follow up with your primary care provider in 2-3 days, call for an appointment. Let them know you were seen in the Emergency Department and that we ask that you be seen in follow up. We will electronically transmit a record of today's note if your PCP is in our system *If you do not have a primary care provider please contact the [facility] Resource line at [phone]. They will ask some questions about your medical history and help get you set up with a doctor in the community. *Return to Emergency Department if you should have any new, worsening or concerning symptoms, such as [fever greater than 101 F, shaking chills, worsening pain, persistent vomiting or other bothersome symptoms] Prescriptions: New hydrocodone-acetaminophen 5-325 mg tablet 1 tab PO Q4-6H PRN (Reason: pain) Qty: 10 RF: 0 ketorolac 10 mg tablet 10 mg PO Q6H PRN (Reason: pain) Qty: 14 RF: 0 tamsulosin [Flomax] 0.4 mg capsule 0.4 mg PO DAILY Qty: 30 RF: 0 ondansetron 4 mg tablet,disintegrating 4 mg PO TID-QID PRN (Reason: nausea and vomiting) Qty: 10 RF: 0 No Action multivitamin Tablet 1 tab PO DAILY RF: 0 levothyroxine 50 mcg Tablet 50 mcg PO DAILY RF: 0 cholecalciferol (vitamin D3) [Vitamin D3] 5,000 unit Tablet 5,000 unit PO DAILY RF: 0 CoQ-10 300 MG 300 mg PO DAILY RF: 0 Referrals: Rashmi Cardenas MD [Primary Care Provider] -
[2020-11-29] MEDS: ONDANSETRON 4 MG/2 ML INJ IV (05:12)
[2020-11-29] MEDS: KETOROLAC 30 MG/ML VIAL 15 MG IV (05:57)
[2020-11-29] MEDS: HYDROMORPHONE 0.5 MG INJ IV (06:19)
[2020-11-29 07:26] VITALS: PULSE 73; O2SAT 96
[2020-11-29 07:30] VITALS: BP 127/68; PULSE 73; O2SAT 96
[2020-11-29] MEDS: HYDROCODONE/ACET 5/325 PREPACK 1 BOTTLE MISC (07:48)
--- NOTE | 2021-01-14 13:52 | PC.NURSE ---
late entry- IV fluids DC'd at 0700 prior to discharge- per RN
== END 2020-11-29 07:50 | disposition home or self-care (01) ==
PROVIDERS: Emergency Provider Emergency Medicine; PCP Internal Medicine
DX: N20.0 Calculus of kidney (principal)
CPT/HCPCS: 74176; 80053; 81003; 83690; 85025; 96361; 96374; 96375; 99284; J1170; J1885; J2405

== ENCOUNTER → 2022-02-09 11:22 | Outpatient (CLI) | payer OTHER, SELFPAY ==
--- NOTE | 2022-02-09 11:26 | DI.RAD.S_ITS ---
PROCEDURE: XR LUMBAR SPINE 2-3V INDICATIONS: Left side lower back pain TECHNIQUE: Three views of the lumbar spine were acquired. COMPARISON: None. FINDINGS: Bones: Mild to moderate spondylosis with osteophyte formation, facet arthropathy, and disc space height loss. Trace retrolisthesis of L1 on L2. Soft tissues: Overlying bowel gas pattern is normal. No suspicious soft tissue calcifications. IMPRESSION: [id number] lumbar spondylosis without acute radiographic abnormality. Consider MRI to further evaluate if necessary. Dictated by: Omero Pastor M.D. on 02/09/2022 at 14:05 Approved by: Omero Pastor M.D. on 02/09/2022 at 14:06
== END ==
PROVIDERS: PCP Internal Medicine; Referring Provider Internal Medicine; Visit Provider Internal Medicine
DX: M54.16 Radiculopathy, lumbar region (principal); M47.816 Spondylosis without myelopathy or radiculopathy, lumbar region
CPT/HCPCS: 72100

== ENCOUNTER 2022-03-20 09:30 | Emergency (ER) | payer OTHER, SELFPAY ==
[2022-03-20 09:47] VITALS: PULSE 99; O2SAT 97
[2022-03-20 09:48] VITALS: BP 201/85; PULSE 88; RESP 16; TEMP 36.9; O2SAT 99; BMI 27.3
--- NOTE | 2022-03-20 10:03 | PC.NURSE ---
Patient states pain runs down to her left leg and foot and is a 8/10. She has tried her RX for prednisone with no relief. She is most comfortable on her back
--- NOTE | 2022-03-20 10:19 | ED.BACK ---
HPI - Back Pain/Injury General Chief Complaint: Back Pain/Injury Stated Complaint: think she has a herinated disc x02/02/22 Time Seen by Provider: 03/20/22 10:19 Source: patient Mode of arrival: Ambulatory Limitations: no limitations History of Present Illness HPI Narrative: This is a 76-year-old female with history of hypothyroidism, dyslipidemia and hypertension, patient has had back pain starting mid January. Patient states it started gradually over couple days no distinct injury that she appreciates. Pain has started it is mostly on the left side radiates down her left leg, she denies paresthesias, no saddle anesthesia, no loss of bowel or bladder control, no weakness but pain has been progressive and inhibiting her more and more. She saw her primary care she was taking tinazadine, prednisone and another medication without much improvement. She is been seeing a chiropractor it is helpful for day or 2 and then returns but does not seem to worsen her symptoms. She is had a back x-ray but no additional workup. Patient has not had any prior back interventions or surgery. She had not taken anything for pain in the last day or 2. She denies any drug allergies. No tobacco, drinks 1-2 alcoholic drinks daily, no illicit. Rashmi cardenas is her primary care physician. Related Data Home Medications Medication Instructions Recorded Confirmed CoQ-10 300 mg PO DAILY 02/07/19 07/09/19 cholecalciferol (vitamin D3) 125 5,000 unit PO DAILY 02/07/19 07/09/19 mcg (5,000 unit) tablet (Vitamin D3) levothyroxine 50 mcg tablet 50 mcg PO DAILY 02/07/19 07/09/19 multivitamin 1 tab PO DAILY 02/07/19 07/09/19 Previous Rx's Medication Instructions Recorded hydrocodone 5 mg-acetaminophen 325 1 tab PO Q4-6H PRN pain #10 tabs 11/29/20 mg tablet ketorolac 10 mg tablet 10 mg PO Q6H PRN pain #14 tabs 11/29/20 ondansetron 4 mg disintegrating 4 mg PO TID-QID PRN nausea and 11/29/20 tablet vomiting #10 tabs tamsulosin 0.4 mg capsule (Flomax) 0.4 mg PO DAILY #30 caps 11/29/20 gabapentin 300 mg capsule 300 mg PO TID #30 caps 03/20/22 oxycodone 5 mg tablet 5 mg PO Q6H PRN pain #10 tabs 03/20/22 Allergies Allergy/AdvReac Type Severity Reaction Status Date / Time No Known Drug Allergies Allergy Verified 07/09/19 09:14 Review of Systems Review of Systems ROS Unobtainable: All systems reviewed & are unremarkable except as noted in HPI and below Patient History Social History household members: spouse Smoking Status: Never smoker Smoking Status: Never smoker alcohol intake frequency: 0-2 drinks per day Substance Use Type: does not use Exam Narrative Exam Narrative: GENERAL: Alert and oriented x three, elderly female in yebz-he-vyapimpk distress HEENT: Head normocephalic, atraumatic, EOMI, pupils reactive, face symmetric, moist mucous membranes NECK: Supple, full range of motion CARDIOVASCULAR: Regular rate and rhythm without murmurs, rubs or gallops. RESPIRATORY: Breath sounds equal bilaterally, no wheezes rales or rhonchi. ABDOMEN: Soft, nontender. Normoactive bowel sounds all 4 quadrants. No guarding or rebound, rigidity, no mass : No CVA tenderness BACK: No cervical, thoracic or lumbar vertebral point tenderness. Patient does have some left SI tenderness on exam. No erythema, warmth or skin changes. Patient has normal range of motion. Patient's gait is normal. Rectal exam is deferred. Muscle strength is 5/5 in lower extremities, DTRs are 2/4 and lower extremities. Dorsalis pedis and tibialis pulses are 2+ and lower extremities. Sensation is intact in the lower extremities. EXTREMITIES: Normal range of motion, no clubbing or edema. No pain with straight leg raise bilaterally. Neurovascularly intact NEUROLOGICAL: Cranial nerves II through XII grossly intact. Moving all extremities SKIN: Warm, dry, no petechiae, no rashes or lesions. Initial Vital Signs Initial Vital Signs: Vital Signs Pulse Rate 99 H 03/20/22 09:47 Pulse Oximetry 97 03/20/22 09:47 Course Orders Ordered: Discontinued Medications Ketorolac Tromethamine (Ketorolac 30 Mg/Ml Vial) 30 mg IM NOW ONE Stop: 03/20/22 10:22 Last Admin: 03/20/22 10:25 Dose: 30 mg Documented By: MANUEL Oxycodone HCl (Oxycodone Ir 5 Mg Tablet) 5 mg PO NOW ONE Stop: 03/20/22 11:50 Last Admin: 03/20/22 11:54 Dose: 5 mg Documented By: MANUEL Vital Signs Vital signs: Vital Signs - 8 hr 03/20/22 09:48 03/20/22 09:47 Temperature 98.5 F Pulse Rate 88 99 H Respiratory Rate 16 Blood Pressure 201/85 H Pulse Oximetry 99 97 Oxygen Delivery Method Room Air MDM - Back Pain/Injury Imaging Data lspine xray: Radiologist's Impression: Close Lumbar Spine X-Ray (Signed) Omero Pastro - 02/09/22 Abdomen/Pelvis CT (Signed) Michele Monae - 11/29/20 Telemetry Strips 07/09/19 Myocardial Perfusion Scan Nuc Med (Signed) Colton Jacob - 07/03/19 Echocardiogram Ultrasound (Signed) Judah Verduzco - 02/28/19 Carotid Doppler Study (Signed) Jesus Manuel Lilly - 02/28/19 Brain MRI (Signed) Angeles Meehan - 02/28/[address] (Signed) Elizabeth Nance - 02/07/19 Radiology Report (Cancelled) Irlanda Reyes - 03/13/18 Myocardial Perfusion Scan Nuc Med (Signed) Irlanda Reyes - 03/12/18 Chest X-Ray (Signed) Zafar Ho - 02/20/18 Outside EKG 02/16/16 Launch?[place] [address] XRay Report Signed Patient: Lia Cano MR#: [id number] : 1945 Acct:[id number] Age/Sex: 76 / F Date of Service: 02/09/22 Loc: RAD Accession Number: [id number] ?? Procedure: XR lumbar spine 2-3V Ordering Provider: Rashmi Cardenas MD PROCEDURE:? XR LUMBAR SPINE 2-3V ? INDICATIONS:? Left side lower back pain ? TECHNIQUE:? Three views of the lumbar spine were acquired.? ? COMPARISON:? None. ? FINDINGS:? ? Bones:? Mild to moderate spondylosis with osteophyte formation, facet arthropathy, and disc space height loss.? Trace retrolisthesis of L1 on L2. ? Soft tissues:? Overlying bowel gas pattern is normal.? No suspicious soft tissue calcifications.? ? ? IMPRESSION:? Cyfv-ho-[id number] lumbar spondylosis without acute radiographic abnormality.? Consider MRI to further evaluate if necessary. ? ? Dictated by: Omero Pastor M.D. on 02/09/2022 at 14:05 ? ? Approved by: Omero Pastor M.D. on 02/09/2022 at 14:06?? MDM Narrative Medical decision making narrative: This is a 76-year-old female with radicular back pain with a L-spine x-ray from 02/09 which shows bqyk-io-[id number] lumbar spondylosis without acute abnormality. Patient likely benefit from MRI but has nonemergent exam findings and no red flag symptoms. She was not taking any medication the last couple days she had some improvement with Toradol IM here, plan for some oral pain medication and gabapentin narcotic pain medication for short term. Patient and I did discuss that she may benefit from pain management and or orthopedic follow-up and referral was given for both. Return precautions. Discharge Plan Departure Patient Disposition: Home Clinical Impression: Sciatica Instructions: DI for Back Pain With Sciatica Activity Restrictions/Additional Instructions: I would recommend following up with either physiatry and Dr. Urias'shakila for pain management and possible intervention and/or Dr. Yi a local spinal surgeon. Referral is included below for both, please call today or tomorrow to set up follow-up appointment. I would recommend taking pain medication regularly such as Tylenol 1000 mg every 6 hours as needed for pain. You may take gabapentin 1 tablet every 8 hours as needed. This medication can be titrated upwards and is helpful for nerve pain specifically. If in adequate you can take 1-2 tablets of oral narcotic pain medication. This medication can make you sleepy do not drive, perform hazardous activities or make any major decisions while taking it. This medication will make you constipated please take a stool softener once to twice daily until stools are soft and regular. Prescription sent to [facility] in [place]. Please return for rapidly worsening symptoms, loss of bowel or bladder control, inability to lift or move her leg, loss of sensation or other new or concerning symptoms. Prescriptions: New gabapentin 300 mg capsule 300 mg PO TID Qty: 30 0RF oxycodone 5 mg tablet 5 mg PO Q6H PRN (Reason: pain) Qty: 10 0RF No Action multivitamin Tablet 1 tab PO DAILY levothyroxine 50 mcg Tablet 50 mcg PO DAILY cholecalciferol (vitamin D3) [Vitamin D3] 5,000 unit Tablet 5,000 unit PO DAILY CoQ-10 300 MG 300 mg PO DAILY hydrocodone-acetaminophen 5-325 mg tablet 1 tab PO Q4-6H PRN (Reason: pain) Qty: 10 0RF ketorolac 10 mg tablet 10 mg PO Q6H PRN (Reason: pain) Qty: 14 0RF tamsulosin [Flomax] 0.4 mg capsule 0.4 mg PO DAILY Qty: 30 0RF ondansetron 4 mg tablet,disintegrating 4 mg PO TID-QID PRN (Reason: nausea and vomiting) Qty: 10 0RF Referrals: Brandon Urias DO [Physician] - Ton Yi MD [Physician] - Rashmi Cardenas MD [Primary Care Provider] - Visit Report Forms: Patient Portal/API
[2022-03-20] MEDS: KETOROLAC 30 MG/ML VIAL IM (10:25)
[2022-03-20] MEDS: OXYCODONE IR 5 MG TABLET PO (11:54)
[2022-03-20 12:21] VITALS: BP 188/75; PULSE 80; RESP 16; O2SAT 98
== END 2022-03-20 12:21 | disposition home or self-care (01) ==
PROVIDERS: Emergency Provider Emergency Medicine; PCP Internal Medicine
DX: M54.42 Lumbago with sciatica, left side (principal)
CPT/HCPCS: 96372; 99283; J1885

== ENCOUNTER 2023-06-30 05:45 | Emergency (ER) | payer MEDICARE, SELFPAY ==
[2023-06-30] VITALS (9 sets, daily range): BP systolic 160–180; BP diastolic 81–88; PULSE 65–96; RESP 11–19; TEMP 36.7; O2SAT 97–100; BMI 23.6
--- NOTE | 2023-06-30 05:52 | DI.RAD.S_ITS ---
PROCEDURE: XR CHEST 1V INDICATIONS: chest pain TECHNIQUE: One view of the chest was acquired. COMPARISON: [facility], CR, XR CHEST 2V, 02/20/2018, 10:05. FINDINGS: Surgical changes and devices: None. Lungs and pleura: No dense consolidation or pleural effusions. There may be right upper and perihilar mild opacity. Mediastinum: Normal heart size Bones and chest wall: Unremarkable IMPRESSION: Possible right upper and perihilar mild opacity, representing early airspace disease or atelectasis. Consider future imaging surveillance to assess for resolution. No dense consolidation. No effusions. No significant discrepancy from the prelim report. Dictated by: Omero Pastor M.D. on 06/30/2023 at 7:06 Approved by: Omero Pastor M.D. on 06/30/2023 at 7:08
--- NOTE | 2023-06-30 05:58 | ED.CHESTPAIN ---
HPI - Chest Pain <Cindy Kevin DO - Last Filed: 07/03/23 00:54> General Chief Complaint: Arrhythmia/Palpitations Stated Complaint: heart beating fast left side tingly and shaky Time Seen by Provider: 06/30/23 05:53 Source: patient Mode of arrival: Ambulatory History of Present Illness HPI narrative: Patient is a 77-year-old healthy female with history of hypothyroid hyperlipidemia presenting today with chest discomfort. She reports that she woke up suddenly and felt like her heart was fluttering inside her chest. She has a dull ache now is unsure if she feels it now. She is never felt anything like that before. No significant shortness of breath nausea vomiting neck pain jaw pain or any other symptoms. She is currently in sinus rhythm on the monitor. Related Data Home Medications Medication Instructions Recorded Confirmed CoQ-10 300 mg PO DAILY 02/07/19 07/09/19 cholecalciferol (vitamin D3) 125 5,000 unit PO DAILY 02/07/19 07/09/19 mcg (5,000 unit) tablet (Vitamin D3) levothyroxine 50 mcg tablet 50 mcg PO DAILY 02/07/19 07/09/19 multivitamin 1 tab PO DAILY 02/07/19 07/09/19 Previous Rx's Medication Instructions Recorded hydrocodone 5 mg-acetaminophen 325 1 tab PO Q4-6H PRN pain #10 tabs 11/29/20 mg tablet ketorolac 10 mg tablet 10 mg PO Q6H PRN pain #14 tabs 11/29/20 ondansetron 4 mg disintegrating 4 mg PO TID-QID PRN nausea and 11/29/20 tablet vomiting #10 tabs tamsulosin 0.4 mg capsule (Flomax) 0.4 mg PO DAILY #30 caps 11/29/20 gabapentin 300 mg capsule 300 mg PO TID #30 caps 03/20/22 oxycodone 5 mg tablet 5 mg PO Q6H PRN pain #10 tabs 03/20/22 Allergies Allergy/AdvReac Type Severity Reaction Status Date / Time No Known Drug Allergies Allergy Verified 07/09/19 09:14 Review of Systems <Nando Casiano DO - Last Filed: 06/30/23 08:42> Review of Systems Narrative: see hpi Patient History <Cindy Kevin DO - Last Filed: 07/03/23 00:54> Social History household members: spouse Smoking Status: Never smoker Smoking Status: Never smoker alcohol intake frequency: 0-2 drinks per day Substance Use Type: does not use Exam <Cindy Kevin DO - Last Filed: 07/03/23 00:54> Initial Vital Signs Initial Vital Signs: Vital Signs Temperature 98.1 F 06/30/23 05:53 Pulse Rate 96 H 06/30/23 05:53 Respiratory Rate 18 06/30/23 05:53 Blood Pressure 180/88 H 06/30/23 05:53 Pulse Oximetry 99 06/30/23 05:53 Oxygen Delivery Method Room Air 06/30/23 05:53 GENERAL: Alert 77-year-old female and in no acute distress. HEENT: Head atraumatic,EOMI, pupils reactive, face symmetric, moist mucous membranes CARDIOVASCULAR: Regular rate and rhythm without murmurs, rubs or gallops. RESPIRATORY: Breath sounds equal bilaterally, no wheezes rales or rhonchi. ABDOMEN: Soft, nontender. Normoactive bowel sounds all 4 quadrants. No guarding or rebound. EXTREMITIES: Normal range of motion, no clubbing or edema. Neurovascularly intact NEUROLOGICAL: Alert and oriented x4.Normal gait and speech. Cranial nerves II through XII grossly intact. SKIN: Warm, dry, no laceration, no petechiae, no rashes or lesions. <Nando Casiano DO - Last Filed: 06/30/23 08:42> Initial Vital Signs Initial Vital Signs: Vital Signs Temperature 98.1 F 06/30/23 05:53 Pulse Rate 96 H 06/30/23 05:53 Respiratory Rate 18 06/30/23 05:53 Blood Pressure 180/88 H 06/30/23 05:53 Pulse Oximetry 99 06/30/23 05:53 Oxygen Delivery Method Room Air 06/30/23 05:53 Scores <DO Danna Waterman Last Filed: 07/03/23 00:54> HEART Score Heart Score history: Slightly Suspicious Heart Score EKG: Normal Heart Score Age: > or = 65 years old Heart Score risk factors: 1-2 risk factors Heart Score troponin: < or = to normal limit Heart Score Total: 3 <DO Danna Fermin Last Filed: 06/30/23 08:42> HEART Score Heart Score Total: 3 Course <DO Danna Waterman Last Filed: 07/03/23 00:54> Orders Ordered: Discontinued Medications Aspirin (Aspirin 81 Mg Chew Tab) 324 mg PO NOW ONE Stop: 06/30/23 05:53 Last Admin: 06/30/23 06:23 Dose: 324 mg Documented By: AMAIRANI Vital Signs Vital signs: Vital Signs - 8 hr 06/30/23 05:53 06/30/23 05:57 06/30/23 06:00 Temperature 98.1 F Pulse Rate 96 H 95 H 86 Respiratory Rate 18 13 14 Blood Pressure 180/88 H Pulse Oximetry 99 100 99 Oxygen Delivery Method Room Air 06/30/23 06:30 06/30/23 06:44 06/30/23 06:44 Temperature Pulse Rate 68 74 Respiratory Rate 13 15 Blood Pressure 160/81 H Pulse Oximetry 97 97 Oxygen Delivery Method 06/30/23 07:00 06/30/23 07:30 06/30/23 08:00 Temperature Pulse Rate 67 65 71 Respiratory Rate 13 11 L 19 Blood Pressure Pulse Oximetry 97 97 98 Oxygen Delivery Method <DO Danna Fermin Last Filed: 06/30/23 08:42> Orders Ordered: Discontinued Medications Aspirin (Aspirin 81 Mg Chew Tab) 324 mg PO NOW ONE Stop: 06/30/23 05:53 Last Admin: 06/30/23 06:23 Dose: 324 mg Documented By: AMAIRANI Vital Signs Vital signs: Vital Signs - 8 hr 06/30/23 05:53 06/30/23 05:57 06/30/23 06:00 Temperature 98.1 F Pulse Rate 96 H 95 H 86 Respiratory Rate 18 13 14 Blood Pressure 180/88 H Pulse Oximetry 99 100 99 Oxygen Delivery Method Room Air 06/30/23 06:30 06/30/23 06:44 06/30/23 06:44 Temperature Pulse Rate 68 74 Respiratory Rate 13 15 Blood Pressure 160/81 H Pulse Oximetry 97 97 Oxygen Delivery Method 06/30/23 07:00 06/30/23 07:30 06/30/23 08:00 Temperature Pulse Rate 67 65 71 Respiratory Rate 13 11 L 19 Blood Pressure Pulse Oximetry 97 97 98 Oxygen Delivery Method MDM - Chest Pain <DO Danna Waterman Last Filed: 07/03/23 00:54> Lab Data 06/30/23 06:00 06/30/23 06:00 Labs: Lab Results 06/30/23 06/30/23 Range/Units 06:00 07:55 WBC 4.2 L (4.5-11.0) X10^3/uL RBC 4.63 (4.0-5.2) X10^6/uL Hgb 14.7 (12.0-16.0) g/dL Hct 43.8 (36-46) % MCV 94.5 (80-100) fL MCH 31.7 (26-34) PG MCHC 33.5 (30-36) % RDW 13.4 (11.6-14.8) % Plt Count 188 (150-400) X10^3/uL Neut % (Auto) 42.2 L (50-75) % Lymph % (Auto) 45.0 H (25-40) % [place] % (Auto) 9.2 (3-14) % Eos % (Auto) 3.1 (2-4) % Baso % (Auto) 0.5 (0-2) % Neut # (Auto) 1800 (9453-7508) /uL Lymph # (Auto) 1900 (3300-2943) /uL [place] # (Auto) 400 (0-900) /uL Eos # (Auto) 100 (0-450) /uL Baso # (Auto) 0 (0-100) /uL PT 9.5 (9.4-12.5) SECONDS INR 0.8 L (0.9-1.3) APTT 31 (25.1-36.5) SECONDS Sodium 138 (137-145) mmol/L Potassium 3.9 (3.4-5.1) mmol/L Chloride 105 (98-107) mmol/L Carbon Dioxide 24 (22-32) mmol/L BUN 15 (7-17) mg/dL Creatinine 0.68 (0.52-1.04) mg/dL Estimated GFR > 60 (>60) mL/min BUN/Creatinine Ratio 22.1 H (6-22) Glucose 122 H (80-110) mg/dL Calcium 9.6 (8.4-10.2) mg/dL Magnesium 2.0 (1.6-2.3) mg/dL Total Bilirubin 0.9 (0.2-1.3) mg/dL AST 42 H (14-36) IU/L ALT 40 H (<35) IU/L Alkaline Phosphatase 73 (38-126) U/L Total Creatine Kinase 118 (30-135) U/L Troponin I < 0.012 < 0.012 (0.01-0.034) ng/mL Total Protein 7.3 (6.3-8.2) g/dL Albumin 4.5 (3.5-5.0) g/dL Globulin 2.8 (1.7-4.1) g/dL Albumin/Globulin Ratio 1.6 (1.0-2.8) Lipase 150 (23-300) U/L Imaging Data Chest x-ray: Radiologist's Impression: Preliminary reports subtle change in right upper lobe possibly infiltrate ECG Data Interpretation: Normal sinus rhythm rate 91 NM interval 180 QRS [address] changes MDM Narrative Medical decision making narrative: Patient is a 77-year-old female history of hypothyroid hyperlipidemia presenting today with chest discomfort. She was feeling some fluttering in her chest but is in sinus rhythm on the monitor. She is still complaining of a dull chest pressure. Blood work has been reviewed without clinical significant abnormalities Chest x-ray reviewed possible upper lobe infiltrate Patient is re-evaluated she does show an occasional PAC on the monitor but not very often. Currently in room she still complains of a dull ache in her chest. It is a normal sinus rhythm. Will repeat a 2nd troponin. She has a low risk heart score. Patient signed out to Dr. Casiano <Nando Casiano, DO - Last Filed: 06/30/23 08:42> Lab Data Attestation: I reviewed the patient's lab results. Labs: Lab Results 06/30/23 06/30/23 Range/Units 06:00 07:55 WBC 4.2 L (4.5-11.0) X10^3/uL RBC 4.63 (4.0-5.2) X10^6/uL Hgb 14.7 (12.0-16.0) g/dL Hct 43.8 (36-46) % MCV 94.5 (80-100) fL MCH 31.7 (26-34) PG MCHC 33.5 (30-36) % RDW 13.4 (11.6-14.8) % Plt Count 188 (150-400) X10^3/uL Neut % (Auto) 42.2 L (50-75) % Lymph % (Auto) 45.0 H (25-40) % [place] % (Auto) 9.2 (3-14) % Eos % (Auto) 3.1 (2-4) % Baso % (Auto) 0.5 (0-2) % Neut # (Auto) 1800 (0023-4886) /uL Lymph # (Auto) 1900 (5960-5366) /uL [place] # (Auto) 400 (0-900) /uL Eos # (Auto) 100 (0-450) /uL Baso # (Auto) 0 (0-100) /uL PT 9.5 (9.4-12.5) SECONDS INR 0.8 L (0.9-1.3) APTT 31 (25.1-36.5) SECONDS Sodium 138 (137-145) mmol/L Potassium 3.9 (3.4-5.1) mmol/L Chloride 105 (98-107) mmol/L Carbon Dioxide 24 (22-32) mmol/L BUN 15 (7-17) mg/dL Creatinine 0.68 (0.52-1.04) mg/dL Estimated GFR > 60 (>60) mL/min BUN/Creatinine Ratio 22.1 H (6-22) Glucose 122 H (80-110) mg/dL Calcium 9.6 (8.4-10.2) mg/dL Magnesium 2.0 (1.6-2.3) mg/dL Total Bilirubin 0.9 (0.2-1.3) mg/dL AST 42 H (14-36) IU/L ALT 40 H (<35) IU/L Alkaline Phosphatase 73 (38-126) U/L Total Creatine Kinase 118 (30-135) U/L Troponin I < 0.012 < 0.012 (0.01-0.034) ng/mL Total Protein 7.3 (6.3-8.2) g/dL Albumin 4.5 (3.5-5.0) g/dL Globulin 2.8 (1.7-4.1) g/dL Albumin/Globulin Ratio 1.6 (1.0-2.8) Lipase 150 (23-300) U/L ECG Data Interpretation: Normal sinus rhythm rate 91 NM interval 180 QRS [address] changes Repeat EKG Sinus rhythm Ventricular rate of 67 Normal axis Normal QRS Normal QTC No ST T wave changes MDM Narrative Medical decision making narrative: Patient is a 77-year-old female history of hypothyroid hyperlipidemia presenting today with chest discomfort. She was feeling some fluttering in her chest but is in sinus rhythm on the monitor. She is still complaining of a dull chest pressure. Blood work has been reviewed without clinical significant abnormalities Chest x-ray reviewed possible upper lobe infiltrate Patient is re-evaluated she does show an occasional PAC on the monitor but not very often. Currently in room she still complains of a dull ache in her chest. It is a normal sinus rhythm. Will repeat a 2nd troponin. She has a low risk heart score. Patient signed out to Dr. Oh casiano: Received turned over. Review patient's history and physical exam. She has not currently having palpitations. Has a low risk heart score. Chest x-ray is unremarkable. 2 negative troponins. Nonischemic EKG. Discussed all this with the patient. Will have her contact her primary doctor for follow-up. She was given return precautions. She expressed understanding and agreement. Discharge Plan Departure Patient Disposition: Home Clinical Impression: Palpitations, Atypical chest pain Instructions: DI for Atypical Chest Pain, DI for Palpitations Activity Restrictions/Additional Instructions: Recommend that you continue to take all of your medications as directed. Contact your primary care doctor for a follow-up and to discuss the indications for a Holter monitor. Return to the emergency department for new worsening symptoms. Prescriptions: No Action multivitamin Tablet 1 tab PO DAILY levothyroxine 50 mcg Tablet 50 mcg PO DAILY cholecalciferol (vitamin D3) [Vitamin D3] 5,000 unit Tablet 5,000 unit PO DAILY CoQ-10 300 MG 300 mg PO DAILY hydrocodone-acetaminophen 5-325 mg tablet 1 tab PO Q4-6H PRN (Reason: pain) Qty: 10 0RF ketorolac 10 mg tablet 10 mg PO Q6H PRN (Reason: pain) Qty: 14 0RF tamsulosin [Flomax] 0.4 mg capsule 0.4 mg PO DAILY Qty: 30 0RF ondansetron 4 mg tablet,disintegrating 4 mg PO TID-QID PRN (Reason: nausea and vomiting) Qty: 10 0RF gabapentin 300 mg capsule 300 mg PO TID Qty: 30 0RF oxycodone 5 mg tablet 5 mg PO Q6H PRN (Reason: pain) Qty: 10 0RF Referrals: Rashmi Cardenas MD [Primary Care Provider] - Stand Alone Forms: Patient Portal/API
[2023-06-30 06:10] LABS: Add Manual Diff / Slide Review NO; Basophils Absolute Auto 0 /uL (0-100); Basophils Percent Auto 0.5 % (0-2); Eosinophils Absolute Auto 100 /uL (0-450); Eosinophils Percent Auto 3.1 % (2-4); Hematocrit 43.8 % (36-46); Hemoglobin 14.7 g/dL (12.0-16.0); Lymphocytes Absolute Auto 1900 /uL (1100-4500); Mean Corpuscular HGB Conc 33.5 % (30-36); Mean Corpuscular Hemoglobin 31.7 PG (26-34); Mean Corpuscular Volume 94.5 fL (80-100); Monocytes Absolute Auto 400 /uL (0-900); Monocytes Percent Auto 9.2 % (3-14); Neutrophils Absolute Auto 1800 /uL (1500-7000); Neutrophils Percent Auto 42.2 % (50-75); Platelet Count 188 X10^3/uL (150-400); Red Blood Cell Count 4.63 X10^6/uL (4.0-5.2); Red Cell Distribution Width 13.4 % (11.6-14.8); White Blood Cell Count 4.2 X10^3/uL (4.5-11.0)
[2023-06-30 06:14] LABS: INR 0.8 (0.9-1.3); Prothrombin Time 9.5 SECONDS (9.4-12.5)
[2023-06-30 06:16] LABS: PTT Partial Thromboplastin Tim 31 SECONDS (25.1-36.5)
[2023-06-30 06:19] LABS: Alanine Aminotransferase 40 IU/L (<35); Albumin 4.5 g/dL (3.5-5.0); Albumin Globulin Ratio 1.6 (1.0-2.8); Alkaline Phosphatase 73 U/L (38-126); Aspartate Aminotransferase 42 IU/L (14-36); BUN Creatinine Ratio 22.1 (6-22); Bilirubin Total 0.9 mg/dL (0.2-1.3); Blood Urea Nitrogen 15 mg/dL (7-17); Calcium 9.6 mg/dL (8.4-10.2); Carbon Dioxide 24 mmol/L (22-32); Chloride 105 mmol/L (98-107); Creatine Kinase 118 U/L (30-135); Estimated Glomerular Filt Rate > 60 mL/min (>60); Globulin 2.8 g/dL (1.7-4.1); Glucose 122 mg/dL (80-110); HEMOLYSIS 15 (0-50); Lipase 150 U/L (23-300); Potassium 3.9 mmol/L (3.4-5.1); Sodium 138 mmol/L (137-145); Total Protein 7.3 g/dL (6.3-8.2)
[2023-06-30] MEDS: ASPIRIN 81 MG CHEW TAB 324 MG PO (06:23)
[2023-06-30 06:30] LABS: Troponin I < 0.012 ng/mL (0.01-0.034)
[2023-06-30 08:21] LABS: Troponin I < 0.012 ng/mL (0.01-0.034)
== END 2023-06-30 08:51 | disposition home or self-care (01) ==
PROVIDERS: Emergency Medicine; Emergency Provider Emergency Medicine; PCP Internal Medicine
DX: R00.2 Palpitations (principal); R07.89 Other chest pain
CPT/HCPCS: 36415; 71045; 80053; 82550; 83690; 83735; 84484; 85025; 85610; 85730; 93005; 99284

== ENCOUNTER → 2023-11-07 15:01 | Outpatient (CLI) | payer OTHER, SELFPAY ==
--- NOTE | 2023-11-07 15:21 | DI.NM.S_ITS ---
DATE OF SERVICE: 11/07/2023 Procedure: Exercise treadmill stress test without imaging. Ordering Provider: Dr. Donavan Hathaway. Indications: The patient is an 78-year-old female with a history of rapid palpitations and occasional left body paresthesias. Findings: 1. The patient was able to exercise for 6 minutes and 58 seconds on a standard Danilo protocol suggesting excellent exercise capacity with an STORMY of -44%, achieving 10.1 METS. 2. She had normal heart rate and blood pressure response to exercise, achieving a maximum heart rate of 150 BPM (107% of her predicted maximum). 3. She had no chest discomfort or other anginal symptoms. 4. Her resting ECG showed sinus rhythm with possible right atrial enlargement, but fairly normal ST segments. There are no significant ST-segment shifts with exercise. She had rare PVCs, rarely in couplets in the recovery phase, but no other arrhythmias. Impression: 1. Normal exercise treadmill stress test for ischemia. 2. Excellent exercise capacity without angina. She had rare PVCs, rarely in couplets. 3. Her resting ECG shows possible right atrial enlargement but clinical correlation is needed. dd:11/07/2023 21:13:00 DICTATING MD/COPIES TO: MD Becca; COPIES MNE: Dr. Donavan Hathaway
--- NOTE | 2023-11-16 10:41 | DI.NM.S_ITS ---
DATE OF SERVICE: 11/07/2023 PROCEDURE: Exercise treadmill stress test without imaging. ORDERING PROVIDER: Dr. Donavan Hathaway. INDICATIONS: The patient is an 78-year-old female with a history of rapid palpitations and occasional left body paresthesias. FINDINGS: 1. The patient was able to exercise for 6 minutes and 58 seconds on a standard Danilo protocol suggesting excellent exercise capacity with an STORMY of -44%, achieving 10.1 METS. 2. She had normal heart rate and blood pressure response to exercise, achieving maximum heart rate of 150 BPM (107% of her predicted maximum). 3. She had no chest discomfort or other anginal symptoms. 4. Her resting ECG showed sinus rhythm with possible right atrial enlargement, but fairly normal ST segments. There are no significant ST- segment shifts with exercise. She had rare PVCs, rarely in couplets in the recovery phase, but no other arrhythmias. IMPRESSION: 1. Normal exercise treadmill stress test for ischemia. 2. Excellent exercise capacity without angina. She had rare premature ventricular contractions, rarely in couplets. 3. Her resting ECG shows possible right atrial enlargement, but clinical correlation is recommended. Lia Cano - RS/fn/ doc#: [id number]/job#: [id number] dd: 11/07/2023 16:24:00 dt: 11/07/2023 21:13:00 DICTATING MD/COPIES TO: Brandon Jean MD; Dr. Donavan Hathaway COPIES MNE: LUZ ELENA; ; Dr. Donavan Hathaway
== END ==
PROVIDERS: PCP Internal Medicine; Referring Provider Internal Medicine Cardiovascular Disease; Visit Provider Internal Medicine Cardiovascular Disease
DX: R00.2 Palpitations (principal)
CPT/HCPCS: 93017

== ENCOUNTER → 2023-12-06 | Outpatient (CLI) | payer OTHER, SELFPAY ==
--- NOTE | 2023-12-06 10:10 | DI.ECHO.S_ITS ---
[place] [facility] : : [address] : : [place] : : [id number] : : Phone: [phone] Echocardiogram Report + + :Name: SIERRA BURGOS Study Date: 12/06/2023 Height: 61 in : :[facility] ReadingLocation: Weight: 145 lb : : Gender: Female BSA: 1.6 m2 : :: 1945 Age: 78 yrs BP: 143/87 mmHg: :Reason For Study: PALPITATION : :Ordering Physician: CASSI, : :NAMAN Performed By: Jerad Thompson : :Referring: NAMAN HATHAWAY : + + Interpretation Summary 1) Normal left ventricular thickness, size, wall motion, and systolic function (EF 55-60%). 2) Normal right ventricular size and function. 3) No significant valvular abnormalities. 4) Compared to the Echo done 02/28/2019, no significant change. Procedure: A two-dimensional transthoracic echocardiogram with color flow and Doppler was performed. The study quality was technically adequate. Comparison is made with the echocardiogram of 02/28/2019. The patient was in normal sinus rhythm during the exam. The heart rate ranged between 73-85 bpm during the study. Left Ventricle: The left ventricle is normal in size and wall thickness. The ejection fraction is estimated to be 55-60%. Diastolic parameters suggest a relaxation abnormality of the left ventricle, consistent with probable normal filling pressures. Right Ventricle: The right ventricle is normal size. The right ventricular systolic function is normal. Atria: The left atrial size is normal. Right atrial size is normal. The interatrial septum grossly appears intact with no obvious evidence for an atrial septal defect. Mitral Valve: There is moderate mitral annular calcification. There is no mitral valve stenosis. There is mild mitral regurgitation. Aortic Valve: The aortic valve is trileaflet. The aortic valve is moderately calcified. There is no aortic stenosis. No aortic regurgitation is present. Tricuspid Valve: The tricuspid valve is normal. There is no tricuspid stenosis. There is mild tricuspid regurgitation. The right ventricular systolic pressure is estimated to be at least 22.6 mmHg based on an estimated right atrial pressure of 3 mm Hg. Pulmonic Valve: The pulmonic valve is not well visualized. There is no pulmonic valvular stenosis. There is a trace or physiologic amount of pulmonic regurgitation. Great Vessels: The aortic root is normal size. The dimensions of the ascending aorta are normal. The IVC is of normal diameter and collapses greater than 50% with a sniff. This suggests a low right atrial pressure of 3 mm Hg. Pericardium/ Pleura There is no pericardial effusion. There is no pleural effusion. MMode/2D Measurements & Calculations LVIDd: 4.2 cm LVOT diam: 2.0 cm LVIDs: 3.0 cm Ao root diam: 2.9 cm FS: 27.5 % asc Aorta Diam: 2.5 cm IVSd: 0.82 cm Ao Arch Diam (Prox Trans): 2.2 cm LVPWd: 0.82 cm LV hong. diameter/BSA (cm/m^2): 2.5 LV sys. diameter/BSA (cm/m^2): 1.8 LA A2 area: 16.0 cm2 RA long axis: 3.8 cm LA A4 area: 15.7 cm2 RA area: 11.4 cm2 LA length (vol): 5.0 cm RA vol: 29.3 ml LA vol: 42.4 ml RA : 17.8 ml/m2 LA vol index: 25.7 ml/m2 IVC diam: 1.3 cm RVD1 (basal): 2.9 cm RVD2 (mid): 2.0 cm TAPSE: 2.1 cm Doppler Measurements & Calculations Ao V2 max: 199.4 cm/sec LVOT Max Lamont: 109.7 cm/sec Ao V2 mean: 142.0 cm/sec LV V1 max P.8 mmHg Ao max P.9 mmHg LV V1 VTI: 25.4 cm Ao mean P.9 mmHg GOLDEN(I,D): 2.0 cm2 Ao V2 VTI: 38.4 cm GOLDEN(V,D): 1.7 cm2 sev ratio: 0.66 GOLDEN indexed to BSA (cm^2/m^2): 1.2 MV E max lamont: 87.9 cm/sec TR max lamont: 220.9 cm/sec MV A max lamont: 118.3 cm/sec TR max P.6 mmHg MV E/A: 0.74 PA V2 max: 86.7 cm/sec Med Peak E' Lamont: 5.2 cm/sec PA V2 mean: 66.5 cm/sec E/E' med: 17.0 PA mean P.9 mmHg Lat Peak E' Lamont: 8.4 cm/sec PA pr(Accel): 37.9 mmHg E/E' lat: 10.5 E/e' average: 13.7 MV dec time: 0.32 sec SV(LVOT): 77.7 ml Reading Physician:04:24 PM
== END ==
PROVIDERS: PCP Internal Medicine; Referring Provider Internal Medicine Cardiovascular Disease; Visit Provider Internal Medicine Cardiovascular Disease
DX: I08.1 Rheumatic disorders of both mitral and tricuspid valves; R01.1 Cardiac murmur, unspecified
CPT/HCPCS: 93306